=== PATIENT | female | born 1965 | race Caucasian/White ===

== ENCOUNTER 2019-05-26 17:11 | Emergency (ER) | payer MEDICARE, MEDICAID ==
[2019-05-26] MEDS ORDERED: Sodium Chloride 0.9% 10 ML Syringe FLUSH PRN (17:43)
--- NOTE | 2019-05-26 17:49 | EDM.PDOC ---
ED HPI GENERAL MEDICAL PROBLEM - General Chief Complaint: Headache Stated Complaint: GENERAL Time Seen by Provider: 05/26/19 17:33 Source of Information: Reports: Patient - History of Present Illness INITIAL COMMENTS - FREE TEXT/NARRATIVE: Emily is a 53 y/o female who presents to the ER with a headache that she reports started 5 days ago. She is very nauseated and the light bothers her eyes. She reports she has never had a headache this bad before. She was in to see her PCP today and apparently been given Prednisone, but she thinks that it is making her face a bit swollen. Her hands also feel "tingly" and swollen. Additionally patient reports a productive cough and she is a daily smoker, but has felt so sick today that she has been unable to smoke a full cigarette. She has not taken anything for the headache. Has been able to drink fluids today. Was prescribed Cephalexin today by her PCP today for respiratory sx, but did not pick it up. She starteed to take some Prednisone today that she had at home. Headache Pain Score (Numeric/FACES): 8 - Related Data Allergies Allergy/AdvReac Type Severity Reaction Status Date / Time butorphanol [From Stadol] Allergy Severe Anaphylactic Verified 05/26/19 17:26 Shock haloperidol [From Haldol] Allergy Severe Anaphylactic Verified 05/26/19 17:26 Shock midazolam [From Versed] Allergy Severe Anaphylactic Verified 05/26/19 17:26 Shock morphine Allergy Severe Anaphylactic Verified 05/26/19 17:26 Shock Sulfa (Sulfonamide Allergy Intermediate Hives Verified 05/26/19 17:26 Antibiotics) carbamazepine [From Tegretol] Allergy Other Verified 05/26/19 17:26 fentanyl Allergy Other Verified 05/26/19 17:27 Tetracyclines Allergy Other Verified 05/26/19 17:27 Home Meds: Home Meds Adalimumab [Humira Pediatric Crohn's] 40 mg SQ Q7D 12/21/17 [History] Albuterol [Ventolin HFA] 2 puff INH Q4H PRN 12/21/17 [History] Aspirin 81 mg PO DAILY 12/21/17 [History] Azelastine/Fluticasone [Dymista Nasal [place]] 1 spray LIAN BID 12/21/17 [History] Cetirizine [ZyrTEC] 10 mg PO DAILY 12/21/17 [History] ClonazePAM [KlonoPIN] 2 mg PO BID 12/21/17 [History] Dicyclomine [Bentyl] 40 mg PO BID 12/21/17 [History] Diphenoxylate HCl/Atropine [Diphenoxylate-Atrop 2.5-0.025] 2 tab PO QID PRN 09/04 [History] Docusate Sodium [Colace] 200 mg PO DAILY 12/21/17 [History] Fluticasone Propionate [Flonase] 2 spray NASBOTH BID 12/21/17 [History] Furosemide 80 mg PO BID 12/21/17 [History] Gabapentin [Neurontin] 800 mg PO BID 12/21/17 [History] Melatonin 10 mg PO BEDTIME 12/21/17 [History] Mesalamine 1,500 mg PO DAILY 12/21/17 [History] Metoprolol Succinate [Toprol XL 50mg] 50 mg PO DAILY 12/21/17 [History] Montelukast [Singulair] 10 mg PO DAILY 12/21/17 [History] Nitroglycerin [Nitrostat] 0.4 mg SL ASDIRECTED PRN 12/21/17 [History] OLANZapine [Olanzapine] 5 mg PO TID 12/21/17 [History] Ondansetron [Ondansetron ODT] 16 mg PO ASDIRECTED PRN 12/21/17 [History] Pantoprazole Sodium [Protonix] 40 mg PO BID 12/21/17 [History] Phenytoin Sodium Extended [Dilantin] 300 mg PO BEDTIME 12/21/17 [History] Pimecrolimus [Elidel] 1 applic TOP BID 12/21/17 [History] Potassium Chloride [Klor-Con M20] 20 meq PO BID 12/21/17 [History] QUEtiapine Fumarate [Quetiapine Fumarate] 150 mg PO DAILY 12/21/17 [History] QUEtiapine Fumarate [Quetiapine Fumarate] 800 mg PO BEDTIME 12/21/17 [History] Ranitidine [Zantac] 150 mg PO BID 12/21/17 [History] Rosuvastatin Calcium 40 mg PO DAILY 12/21/17 [History] Spironolactone [Aldactone] 25 mg PO DAILY 12/21/17 [History] Sucralfate [Carafate] 1 gm PO BID 12/21/17 [History] chlorproMAZINE HCl [Chlorpromazine HCl] 200 mg PO BEDTIME 12/21/17 [History] hydrOXYzine HCL [hydrOXYzine] 50 mg PO TID PRN 12/21/17 [History] lamoTRIgine 200 mg PO BID 12/21/17 [History] Fluticasone/Vilanterol [Breo Ellipta 200-25 MCG Inhalation Kit] 1 each IH ONETIME 05/26/19 [History] Past Medical History Cardiovascular History: Reports: CAD, High Cholesterol Respiratory History: Reports: Bronchitis, Recurrent Gastrointestinal History: Reports: GERD Neurological History: Reports: Seizure Psychiatric History: Reports: Bipolar, PTSD - Past Surgical History GI Surgical History: Reports: Appendectomy, Cholecystectomy, Hernia, Abdominal Musculoskeletal Surgical History: Reports: Shoulder Surgery Social & Family History - Tobacco Use Smoking Status *Q: Current Every Day Smoker Tobacco Use Within Last Twelve Months: Cigarettes Packs/Tins Daily: 0.5 Review of Systems - Review of Systems Review Of Systems: See Below Eyes: Reports: Photophobia Nose: Reports: Congestion, Clear Discharge Mouth/Throat: Reports: No Symptoms Respiratory: Reports: Cough Cardiovascular: Reports: No Symptoms GI/Abdominal: Reports: Diarrhea, Nausea Genitourinary: Reports: No Symptoms Musculoskeletal: Reports: No Symptoms Skin: Reports: No Symptoms Neurological: Reports: Headache, Tingling (hands) Psychiatric: Reports: No Symptoms ED EXAM, GENERAL - Physical Exam Exam: See Below General Appearance: Alert, WD/WN, No Apparent Distress Ears: Normal External Exam, Hearing Grossly Normal Ear Exam: Bilateral Ear: TM Dull, Other (air fluid levels noted) Nose: Normal Inspection, No Blood Throat/Mouth: Normal Lips, Normal Gums, Normal Oropharynx, Normal Voice, Other ( edentulous) Head: Atraumatic, Normocephalic Neck: Normal Inspection, Supple, Non-Tender Respiratory/Chest: No Respiratory Distress, No Accessory Muscle Use, Rales ( posterior RLL, occasional dry cough oted) Cardiovascular: Normal Peripheral Pulses, Regular Rate, Rhythm, No Edema, No Murmur GI/Abdominal: Normal Bowel Sounds, Soft, Non-Tender, No Distention (Female) Exam: Deferred Rectal (Female) Exam: Deferred Back Exam: Normal Inspection Extremities: Normal Inspection, No Pedal Edema, Normal Capillary Refill Neurological: Alert, Oriented, CN II-XII Intact, Normal Cognition, Normal Gait, No Motor/Sensory Deficits Psychiatric: Normal Affect, Normal Mood Skin Exam: Warm, Dry, Intact, Normal Color, No Rash Lymphatic: No Adenopathy Course - Vital Signs Text/Narrative:: 1732 The patient was seen by the [facility]. Labs, CXR, and Head CT were ordered. CT ordered since patient reported worse R[place] ever. 1 liter of NS, Toradol 30 mg IVP, Reglan 20 mg IVP, and Diphenhydramine 50 mg IVP ordered for headache sx. Additional diagnostics ordered to rule out Pneumonia, Influenza, UTI , Brain Tumor. 1854 Reports little relief of headache, rates pain 7.5/10. Phenergan 12.5mg IVP and Dilaudid 1mg IVP ordered. Remaining labs pending yet. 1939 Patient reports pain better now and she feels well enough to go home. Discharge instructions given and patient was sent home by nurse in stable condition. Last Recorded V/S: Last Vital Signs Temp 36.0 C 05/26/19 17:15 Pulse 70 05/26/19 17:15 Resp 18 05/26/19 17:15 BP 112/64 05/26/19 17:15 Pulse Ox 95 05/26/19 17:15 - Orders/Labs/Meds Orders: Active Orders 24 hr Category Date Time Status Sodium Chloride 0.9% [Saline Flush] Med 05/26/19 17:43 Active 10 ml FLUSH ASDIRECTED PRN Saline Lock Insert [OM.PC] Stat Oth 05/26/19 17:42 Ordered Medication Orders Sodium Chloride (Saline Flush) 10 ml FLUSH ASDIRECTED PRN PRN Reason: Keep Vein Open Labs: Laboratory Tests 05/26/19 05/26/19 05/26/19 Range/Units 17:55 17:55 19:04 WBC 4.2 (4.0-10.0) x10^3/uL RBC 4.38 (4.00-5.50) x10^6/uL Hgb 12.8 (12.0-16.0) g/dL Hct 39.9 (33.0-47.0) % MCV 91.1 (78.0-93.0) fL MCH 29.2 (26.0-32.0) pg MCHC 32.1 (32.0-36.0) g/dL RDW Coeff of Petr 16.3 H (10.0-15.0) % Plt Count 209 (130-400) x10^3/uL Neut % (Auto) 78.2 (50.0-80.0) % Lymph % (Auto) 16.4 L (25.0-50.0) % [place] % (Auto) 5.2 (2.0-11.0) % Eos % (Auto) 0.2 (0.0-4.0) % Baso % (Auto) 0.0 L (0.2-1.2) % Sodium 139 (136-145) mmol/L Potassium 3.6 (3.5-5.1) mmol/L Chloride 103 (98-107) mmol/L Carbon Dioxide 22 (21-32) mmol/L Anion Gap 17.6 (10-20) mmol/L BUN 10 (7-18) mg/dL Creatinine 1.4 H (0.55-1.02) mg/dL Est Cr Clr Drug Dosing TNP Estimated GFR (MDRD) 39 Glucose 320 H (74-106) mg/dL Calcium 7.9 L (8.5-10.1) mg/dL Corrected Calcium 8.94 (8.5-10.1) mg/dL Total Bilirubin 0.2 (0.2-1.0) mg/dL AST 29 (15-37) U/L ALT 56 (14-59) U/L Alkaline Phosphatase 274 H (46-116) U/L Total Protein 6.2 L (6.4-8.2) g/dL Albumin 2.7 L (3.4-5.0) g/dL Globulin 3.5 Albumin/Globulin Ratio 0.77 Urine Color Light yellow (YELLOW) Urine Appearance Clear (CLEAR) Urine pH 7.0 (5.0-8.0) Ur Specific [place] 1.010 Urine Protein Negative (NEGATIVE) mg/dL Urine Glucose (UA) 100 H (NEGATIVE) mg/dL Urine Ketones Negative (NEGATIVE) mg/dL Urine Occult Blood Trace-intact H (NEGATIVE) Urine Nitrite Negative (NEGATIVE) Urine Bilirubin Negative (NEGATIVE) Urine Urobilinogen 0.2 (0.2) EU/dL Ur Leukocyte Esterase Negative (NEGATIVE) Urine RBC 0-5 (NOT SEEN) /HPF Urine WBC 0-5 (NOT SEEN) /HPF Ur Squamous Epith Cells Few H (NEGATIVE) /HPF Urine Bacteria Not seen (NEGATIVE) /HPF Urine Mucus Not seen (NEGATIVE) /LPF Urine Opiates Screen (NEGATIVE) Ur Buprenorphine Scrn (NEGATIVE) Ur Oxycodone Screen (NEGATIVE) Ur EDDP (Meth Metab) (NEGATIVE) Urine Methadone Screen (NEGATIVE) Ur Barbituates Screen (NEGATIVE) Ur Tricyclics Screen (NEGATIVE) Ur Phencyclidine Scrn (NEGATIVE) Ur Amphetamines Screen (NEGATIVE) U Methamphetamines Scrn (NEGATIVE) Urine MDMA Screen (NEGATIVE) U Benzodiazepines Scrn (NEGATIVE) Urine Cocaine Screen (NEGATIVE) U Marijuana (THC) Screen (NEGATIVE) 05/26/19 Range/Units 19:04 WBC (4.0-10.0) x10^3/uL RBC (4.00-5.50) x10^6/uL Hgb (12.0-16.0) g/dL Hct (33.0-47.0) % MCV (78.0-93.0) fL MCH (26.0-32.0) pg MCHC (32.0-36.0) g/dL RDW Coeff of Petr (10.0-15.0) % Plt Count (130-400) x10^3/uL Neut % (Auto) (50.0-80.0) % Lymph % (Auto) (25.0-50.0) % [place] % (Auto) (2.0-11.0) % Eos % (Auto) (0.0-4.0) % Baso % (Auto) (0.2-1.2) % Sodium (136-145) mmol/L Potassium (3.5-5.1) mmol/L Chloride (98-107) mmol/L Carbon Dioxide (21-32) mmol/L Anion Gap (10-20) mmol/L BUN (7-18) mg/dL Creatinine (0.55-1.02) mg/dL Est Cr Clr Drug Dosing Estimated GFR (MDRD) Glucose (74-106) mg/dL Calcium (8.5-10.1) mg/dL Corrected Calcium (8.5-10.1) mg/dL Total Bilirubin (0.2-1.0) mg/dL AST (15-37) U/L ALT (14-59) U/L Alkaline Phosphatase (46-116) U/L Total Protein (6.4-8.2) g/dL Albumin (3.4-5.0) g/dL Globulin Albumin/Globulin Ratio Urine Color (YELLOW) Urine Appearance (CLEAR) Urine pH (5.0-8.0) Ur Specific [place] Urine Protein (NEGATIVE) mg/dL Urine Glucose (UA) (NEGATIVE) mg/dL Urine Ketones (NEGATIVE) mg/dL Urine Occult Blood (NEGATIVE) Urine Nitrite (NEGATIVE) Urine Bilirubin (NEGATIVE) Urine Urobilinogen (0.2) EU/dL Ur Leukocyte Esterase (NEGATIVE) Urine RBC (NOT SEEN) /HPF Urine WBC (NOT SEEN) /HPF Ur Squamous Epith Cells (NEGATIVE) /HPF Urine Bacteria (NEGATIVE) /HPF Urine Mucus (NEGATIVE) /LPF Urine Opiates Screen Negative (NEGATIVE) Ur Buprenorphine Scrn Negative (NEGATIVE) Ur Oxycodone Screen Negative (NEGATIVE) Ur EDDP (Meth Metab) Negative (NEGATIVE) Urine Methadone Screen Negative (NEGATIVE) Ur Barbituates Screen Positive H (NEGATIVE) Ur Tricyclics Screen Negative (NEGATIVE) Ur Phencyclidine Scrn Negative (NEGATIVE) Ur Amphetamines Screen Negative (NEGATIVE) U Methamphetamines Scrn Negative (NEGATIVE) Urine MDMA Screen Negative (NEGATIVE) U Benzodiazepines Scrn Negative (NEGATIVE) Urine Cocaine Screen Negative (NEGATIVE) U Marijuana (THC) Screen Negative (NEGATIVE) Meds: Medications Generic Name Dose Route Start Last Admin Trade Name Freq PRN Reason Stop Dose Admin Sodium Chloride 10 ml 05/26/19 17:43 Saline Flush FLUSH ASDIRECTED PRN Keep Vein Open Discontinued Medications Generic Name Dose Route Start Last Admin Trade Name Freq PRN Reason Stop Dose Admin Diphenhydramine HCl 50 mg 05/26/19 17:43 05/26/19 17:57 Benadryl IVPUSH 05/26/19 17:44 50 mg ONETIME ONE Administration Hydromorphone HCl 1 mg 05/26/19 18:58 05/26/19 19:23 Dilaudid IVPUSH 05/26/19 18:59 1 mg ONETIME ONE Administration Hydromorphone HCl 1 mg 05/26/19 19:20 05/26/19 19:43 Dilaudid IVPUSH 05/26/19 19:21 Not Given ONETIME ONE Sodium Chloride 1,000 mls @ 999 mls/hr 05/26/19 17:43 05/26/19 17:59 Normal Saline IV 05/26/19 18:43 999 mls/hr ONETIME ONE Administration Promethazine HCl 12.5 mg/ 100.5 mls @ 400 mls/hr 05/26/19 18:59 05/26/19 19: 18 Sodium Chloride IV 05/26/19 19:14 400 mls/hr ONETIME ONE Administration Ketorolac Tromethamine 30 mg 05/26/19 17:43 05/26/19 17:58 Toradol IVPUSH 05/26/19 17:44 30 mg ONETIME ONE Administration Metoclopramide HCl 20 mg 05/26/19 17:43 05/26/19 17:56 Reglan IVPUSH 05/26/19 17:44 20 mg ONETIME ONE Administration - Radiology Interpretation Free Text/Narrative:: CT Head WO=neg CXR=neg Departure - Departure Time of Disposition: 19:45 Disposition: Home, Self-Care 01 Condition: Good Clinical Impression: Migraine, URI (upper respiratory infection) - Discharge Information *PRESCRIPTION DRUG MONITORING PROGRAM REVIEWED*: No *COPY OF PRESCRIPTION DRUG MONITORING REPORT IN PATIENT SOHAIL: No Instructions: Viral Respiratory Infection, [id number], Migraine Headache Referrals: Ginny Khalil MD [Primary Care Provider] - Forms: ED Department Discharge Additional Instructions: -Resume your home meds -Take the prescriptions as prescribed by your PCP -Rest -Stay well hydrated -Return to the ER if symptoms return or you have any other concerns Sepsis Event Note - Evaluation Sepsis Screening Result: No Definite Risk - Focused Exam Vital Signs: Vital Signs Temp Pulse Resp BP Pulse Ox 05/26/19 17:15 36.0 C 70 18 112/64 95 Date Exam was Performed: 05/26/19 Time Exam was Performed: 19:44 - My Orders Last 24 Hours: My Active Orders 05/26/19 17:42 Saline Lock Insert [OM.PC] Stat 05/26/19 17:43 Sodium Chloride 0.9% [Saline Flush] 10 ml FLUSH ASDIRECTED PRN - Assessment/Plan Last 24 Hours: My Active Orders 05/26/19 17:42 Saline Lock Insert [OM.PC] Stat 05/26/19 17:43 Sodium Chloride 0.9% [Saline Flush] 10 ml FLUSH ASDIRECTED PRN
[2019-05-26] MEDS: Metoclopramide 10 MG/2 ML SDV IVPUSH ONE (17:56)
[2019-05-26] MEDS: diphenhydrAMINE 50 MG/ML SDV IVPUSH ONE (17:57)
[2019-05-26] MEDS: Ketorolac 30 MG/ML SDV IVPUSH ONE (17:58)
[2019-05-26] MEDS: Sodium Chloride 0.9% 1,000 ML IV ONE (17:59)
[2019-05-26 18:21] LABS: CHLORIDE,CL 103 mmol/L (98-107); SODIUM,NA 139 mmol/L (136-145)
[2019-05-26 18:25] LABS: ANION GAP 17.6 mmol/L (10-20)
--- NOTE | 2019-05-26 18:36 | CR ---
[id number] RAD/RAD Chest PA And Lateral EXAM: FRONTAL AND LATERAL CHEST INDICATION: Cough and right lower lobe rales. Smoking history. COMPARISON: None. DISCUSSION: Mild linear subsegmental atelectasis or scarring in both lung bases. No definite infiltrates. Normal heart size. Borderline hyperinflation. IMPRESSION: 1. Mild linear scarring or subsegmental atelectasis in both lung bases. No definite infiltrates. Rogelio Lee MD 05/26/19 [id number] Thank you for allowing us to participate in the care of your patient.
--- NOTE | 2019-05-26 18:38 | CT ---
[id number] CT/CT Head WO IV EXAM: NONCONTRAST HEAD CT INDICATION: Worst headache ever had for 5 days. COMPARISON: December 21, 2017. DISCUSSION: The ventricles and sulci are normal in size and configuration. The leblanc and white matter are normal in attenuation. No mass effect or midline shift. No acute hemorrhage or extra-axial fluid collection. No acute territorial infarct is identified. A limited look at the orbits and paranasal sinuses is unremarkable. IMPRESSION: 1. Negative exam. Rogelio Lee MD 05/26/19 [id number] Thank you for allowing us to participate in the care of your patient.
[2019-05-26 19:18] LABS: BUPRENORPHINE,URINE NEGATIVE (NEGATIVE); MARIJUANA,URINE NEGATIVE (NEGATIVE); METHYLENEDIOXYMETHAMP,UR NEGATIVE (NEGATIVE); PHENCYCLIDINE,URINE NEGATIVE (NEGATIVE)
[2019-05-26] MEDS: Promethazine 12.5 MG in Sodium Chloride 0.9% 100 ML IV ONE (19:18)
[2019-05-26] MEDS: HYDROmorphone 1 MG/ML Syringe IVPUSH ONE ×2 (19:23→19:43)
== END 2019-05-26 19:52 | disposition home or self-care (01) ==
LOC: VM.ED 17:11
DX: G43.909 Migraine, unspecified, not intractable, without status migrainosus (principal); J06.9 Acute upper respiratory infection, unspecified; F17.210 Nicotine dependence, cigarettes, uncomplicated; Z79.899 Other long term (current) drug therapy; Z79.82 Long term (current) use of aspirin; Z88.2 Allergy status to sulfonamides; Z88.5 Allergy status to narcotic agent; Z88.8 Allergy status to other drugs, medicaments and biological substances
CPT/HCPCS: 36415; 70450; 71046; 80053; 80305; 81001; 85025; 87804; 96361; 96374; 96375; 99283; 99284; J1170; J1200; J1885; J2550; J2765; J7030; J7050

== ENCOUNTER 2019-07-22 21:36 | Emergency (ER) | payer MEDICARE, MEDICAID ==
[2019-07-22] MEDS ORDERED: Sodium Chloride 0.9% 10 ML Syringe FLUSH PRN (21:44)
[2019-07-22] MEDS ORDERED: Aspirin 81 MG Tab.Chew PO ONE (21:45)
[2019-07-22] MEDS ORDERED: Nitroglycerin 0.4 MG Tab.SL SL ONE (21:45)
--- NOTE | 2019-07-22 22:20 | EDM.PDOC ---
ED HPI GENERAL MEDICAL PROBLEM - General Stated Complaint: CHEST PAIN Time Seen by Provider: 07/22/19 21:36 Source of Information: Reports: Patient History Limitations: Reports: No Limitations - History of Present Illness INITIAL COMMENTS - FREE TEXT/NARRATIVE: Pt. presents to ER with complaints of severe substernal chest pressure with radiation into upper back and down R arm. She states that she has been diaphoretic. Pt. states that this started at around 0 tonight. She was relaxing watching TV at the time. She states that she has been experiencing intermittent chest discomfort for months. She states that she has been fatigued for some time. Pt. states that she moved her from [place] last year. She states that she has a history of CAD. She states that she has "30% blockage" in one of her coronaries , but is not sure which one. She states that she had "heart attacks" in 2001 and 2007. She states that she has had 2 angiograms but has not stents, has never had a CABG. Pt. states that she is a smoker. She has JOSE D. She has a history of chronic diastolic heart failure. Echo in 2019 showed normal LV function, EF of 65%, normal RV systolic function. Other comorbidities include obesity and IFG. She also has a history of Chrohn's disease, GERD,bipolar 1 disorder, and PTSD. Onset: Today Onset Date: 07/22/19 Onset Time: 20:50 Location: Reports: Chest, Back, Upper Extremity, Right Quality: Reports: Ache, Burning, Pressure Severity: Moderate Mid sternal chest pain Pain Score (Numeric/FACES): 7 - Related Data Allergies Allergy/AdvReac Type Severity Reaction Status Date / Time butorphanol [From Stadol] Allergy Severe Anaphylactic Verified 07/22/19 22:40 Shock haloperidol [From Haldol] Allergy Severe Anaphylactic Verified 07/22/19 22:40 Shock midazolam [From Versed] Allergy Severe Anaphylactic Verified 07/22/19 22:40 Shock morphine Allergy Severe Anaphylactic Verified 07/22/19 22:40 Shock Sulfa (Sulfonamide Allergy Intermediate Hives Verified 07/22/19 22:40 Antibiotics) carbamazepine [From Tegretol] Allergy Other Verified 07/22/19 22:40 fentanyl Allergy Other Verified 07/22/19 22:40 Tetracyclines Allergy Other Verified 07/22/19 22:40 Home Meds: Home Meds Adalimumab [Humira Pediatric Crohn's] 40 mg SQ Q7D 12/21/17 [History] Albuterol [Ventolin HFA] 2 puff INH Q4H PRN 12/21/17 [History] Aspirin 81 mg PO DAILY 12/21/17 [History] Azelastine/Fluticasone [Dymista Nasal [place]] 1 spray LIAN BID 12/21/17 [History] Cetirizine [ZyrTEC] 10 mg PO DAILY 12/21/17 [History] ClonazePAM [KlonoPIN] 2 mg PO BID 12/21/17 [History] Dicyclomine [Bentyl] 40 mg PO BID 12/21/17 [History] Diphenoxylate HCl/Atropine [Diphenoxylate-Atrop 2.5-0.025] 2 tab PO QID PRN 09/04 [History] Fluticasone Propionate [Flonase] 2 spray NASBOTH BID 12/21/17 [History] Furosemide 80 mg PO BID 12/21/17 [History] Gabapentin [Neurontin] 800 mg PO BID 12/21/17 [History] Melatonin 10 mg PO BEDTIME 12/21/17 [History] Mesalamine 1,500 mg PO DAILY 12/21/17 [History] Metoprolol Succinate [Toprol XL 50mg] 50 mg PO DAILY 12/21/17 [History] Montelukast [Singulair] 10 mg PO DAILY 12/21/17 [History] Nitroglycerin [Nitrostat] 0.4 mg SL ASDIRECTED PRN 12/21/17 [History] Ondansetron [Ondansetron ODT] 16 mg PO ASDIRECTED PRN 12/21/17 [History] Pantoprazole Sodium [Protonix] 40 mg PO BID 12/21/17 [History] Phenytoin Sodium Extended [Dilantin] 300 mg PO BEDTIME 12/21/17 [History] Pimecrolimus [Elidel] 1 applic TOP BID 12/21/17 [History] Potassium Chloride [Klor-Con M20] 20 meq PO BID 12/21/17 [History] QUEtiapine Fumarate [Quetiapine Fumarate] 150 mg PO DAILY 12/21/17 [History] QUEtiapine Fumarate [Quetiapine Fumarate] 800 mg PO BEDTIME 12/21/17 [History] Ranitidine [Zantac] 150 mg PO BID 12/21/17 [History] Rosuvastatin Calcium 40 mg PO DAILY 12/21/17 [History] Spironolactone [Aldactone] 25 mg PO DAILY 12/21/17 [History] Sucralfate [Carafate] 1 gm PO BID 12/21/17 [History] chlorproMAZINE HCl [Chlorpromazine HCl] 200 mg PO BEDTIME 12/21/17 [History] hydrOXYzine HCL [hydrOXYzine] 50 mg PO TID PRN 12/21/17 [History] lamoTRIgine 200 mg PO BID 12/21/17 [History] Fluticasone/Vilanterol [Breo Ellipta 200-25 MCG Inhalation Kit] 1 each IH ONETIME 05/26/19 [History] Past Medical History Cardiovascular History: Reports: CAD, High Cholesterol Respiratory History: Reports: Bronchitis, Recurrent Gastrointestinal History: Reports: GERD Neurological History: Reports: Seizure Psychiatric History: Reports: Bipolar, PTSD - Past Surgical History GI Surgical History: Reports: Appendectomy, Cholecystectomy, Hernia, Abdominal Musculoskeletal Surgical History: Reports: Shoulder Surgery ED ROS GENERAL - Review of Systems Review Of Systems: See Below Constitutional: Reports: No Symptoms, Fatigue, Diaphoresis HEENT: Reports: No Symptoms Respiratory: Reports: Shortness of Breath Cardiovascular: Reports: Chest Pain Endocrine: Reports: No Symptoms GI/Abdominal: Reports: No Symptoms : Reports: No Symptoms Musculoskeletal: Reports: No Symptoms Skin: Reports: No Symptoms Neurological: Reports: No Symptoms Psychiatric: Reports: Anxiety Hematologic/Lymphatic: Reports: No Symptoms Immunologic: Reports: No Symptoms ED EXAM, GENERAL - Physical Exam Exam: See Below Exam Limited By: No Limitations General Appearance: Alert, WD/WN, No Apparent Distress Head: Atraumatic, Normocephalic Neck: Normal Inspection, Supple, Non-Tender, Full Range of Motion Respiratory/Chest: No Respiratory Distress, Lungs Clear, Normal Breath Sounds, No Accessory Muscle Use, Chest Non-Tender Cardiovascular: Normal Peripheral Pulses, Regular Rate, Rhythm, No Edema, No Murmur Peripheral Pulses: 4+: Radial (L), Radial (R), Posterior Tibial (R) GI/Abdominal: Soft, Non-Tender, No Organomegaly, No Distention, No Mass (Female) Exam: Deferred Rectal (Female) Exam: Deferred Back Exam: Normal Inspection, Full Range of Motion Extremities: Normal Inspection, Normal Range of Motion, Non-Tender, No Pedal Edema, Normal Capillary Refill Neurological: Alert, Oriented, CN II-XII Intact, Normal Cognition, Normal Gait, Normal Reflexes, No Motor/Sensory Deficits Psychiatric: Normal Affect, Normal Mood Skin Exam: Warm, Dry, Intact, Normal Color, No Rash Lymphatic: No Adenopathy EKG INTERPRETATION Rhythm: NSR [place]: Normal P-Wave: Present QRS: Normal ST-T: Depressed (in lateral leads) QT: Normal Course - Vital Signs Last Recorded V/S: Last Vital Signs Temp 35.8 C L 07/22/19 21:36 Pulse 95 07/22/19 21:36 Resp 12 07/22/19 21:36 BP 129/74 07/22/19 22:08 Pulse Ox 96 07/22/19 21:36 - Orders/Labs/Meds Orders: Active Orders 24 hr Category Date Time Status EKG Documentation Completion [RC] STAT Care 07/22/19 21:44 Active Chest 1V Frontal [CR] Stat Exams 07/22/19 21:49 Taken Heparin Sodium/0.45% NaCl [Heparin 25,000 Units in 1/2 Med 07/22/19 23:04 Ordered NS 500 ML] 25,000 units in 500 ml IV ONETIME Nitroglycerin 25 MG in D5W @ 10 MCG/MIN (250ml) Premix Med 07/22/19 23:15 Ordered Nitroglycerin/D5W [Nitroglycerin 25 MG/D5W 250 ML] 25 mg in 250 ml IV TITRATE Sodium Chloride 0.9% [Saline Flush] Med 07/22/19 21:44 Active 10 ml FLUSH ASDIRECTED PRN Peripheral IV Insertion Adult [OM.PC] Routine Oth 07/22/19 21:45 Ordered Medication Orders Heparin Sodium/Sodium Chloride (Heparin 25,000 Units In 1/2 Ns 500 Ml) 25,000 units in 500 mls @ 20 mls/hr IV ONETIME ONE; Protocol Stop: 07/24/19 00:03 Nitroglycerin/Dextrose (Nitroglycerin 25 Mg/D5w 250 Ml) 25 mg in 250 mls @ 6 mls/hr IV TITRATE FERNANDO; Protocol Sodium Chloride (Saline Flush) 10 ml FLUSH ASDIRECTED PRN PRN Reason: Keep Vein Open Labs: Laboratory Tests 07/22/19 07/22/19 07/22/19 Range/Units 22:15 22:15 22:15 WBC 11.7 H (4.0-10.0) x10^3/uL RBC 4.99 (4.00-5.50) x10^6/uL Hgb 14.6 D (12.0-16.0) g/dL Hct 43.1 (33.0-47.0) % MCV 86.4 D (78.0-93.0) fL MCH 29.3 (26.0-32.0) pg MCHC 33.9 (32.0-36.0) g/dL RDW Coeff of Petr 16.6 H (10.0-15.0) % Plt Count 394 D (130-400) x10^3/uL Neut % (Auto) 63.0 (50.0-80.0) % Lymph % (Auto) 23.4 L (25.0-50.0) % Schley % (Auto) 12.4 H (2.0-11.0) % Eos % (Auto) 0.9 (0.0-4.0) % Baso % (Auto) 0.3 (0.2-1.2) % PT 10.4 (10.0-12.8) SEC INR 0.9 L (2.0-3.5) Sodium 141 (136-145) mmol/L Potassium 2.8 L* (3.5-5.1) mmol/L Chloride 103 (98-107) mmol/L Carbon Dioxide 23 (21-32) mmol/L Anion Gap 17.8 (10-20) mmol/L BUN 5 L (7-18) mg/dL Creatinine 1.3 H (0.55-1.02) mg/dL Est Cr Clr Drug Dosing 46.31 mL/min Estimated GFR (MDRD) 43 Glucose 121 H (74-106) mg/dL Calcium 8.8 (8.5-10.1) mg/dL Corrected Calcium 9.44 (8.5-10.1) mg/dL Phosphorus 3.0 (2.6-4.7) mg/dL Magnesium 1.6 L (1.8-2.4) mg/dL Total Bilirubin 0.2 (0.2-1.0) mg/dL AST 61 H (15-37) U/L ALT 64 H (14-59) U/L Alkaline Phosphatase 343 H (46-116) U/L Troponin I < 0.017 (<=0.056) ng/mL Total Protein 7.2 (6.4-8.2) g/dL Albumin 3.2 L (3.4-5.0) g/dL Globulin 4.0 Albumin/Globulin Ratio 0.80 TSH, Ultra Sensitive 1.781 (0.358-3.74) uIU/mL Meds: Medications Generic Name Dose Route Start Last Admin Trade Name Freq PRN Reason Stop Dose Admin Heparin Sodium/Sodium Chloride 25,000 units in 500 mls @ 20 mls/hr 07/22/19 23 :04 Heparin 25,000 Units In 1/2 Ns 500 Ml IV 07/24/19 00:03 ONETIME ONE Protocol 1,000 UNITS/HR Nitroglycerin/Dextrose 25 mg in 250 mls @ 6 mls/hr 07/22/19 23:15 Nitroglycerin 25 Mg/D5w 250 Ml IV TITRATE FERNANDO Protocol 10 MCG/MIN Sodium Chloride 10 ml 07/22/19 21:44 Saline Flush FLUSH ASDIRECTED PRN Keep Vein Open Discontinued Medications Generic Name Dose Route Start Last Admin Trade Name Freq PRN Reason Stop Dose Admin Aspirin 324 mg 07/22/19 21:45 07/22/19 21:49 Aspirin PO 07/22/19 21:46 324 mg ONETIME ONE Administration Heparin Sodium (Porcine) 4,000 units 07/22/19 23:03 Heparin Sodium IVPUSH 07/22/19 23:04 .BOLUS ONE Hydromorphone HCl 1 mg 07/22/19 22:21 07/22/19 22:28 Dilaudid IVPUSH 07/22/19 22:22 1 mg ONETIME ONE Administration Nitroglycerin 0.4 mg 07/22/19 21:45 07/22/19 22:08 Nitrostat SL 07/22/19 21:46 0.4 mg ONETIME ONE Administration Departure - Departure Time of Disposition: 23:14 Disposition: DC/Tfer to [facility] Clinical Impression: Unstable angina - Discharge Information Referrals: Ginny Khalil MD [Primary Care Provider] - Forms: ED Department Discharge, Interfacility Transfer EMTALA Sepsis Event Note - Focused Exam Vital Signs: Vital Signs Temp Pulse Resp BP BP Pulse Ox 07/22/19 22:08 129/74 07/22/19 21:36 35.8 C L 95 12 129/74 96 Date Exam was Performed: 07/22/19 Time Exam was Performed: 23:14 - Problem List Review Problem List Initiated/Reviewed/Updated: Yes - My Orders Last 24 Hours: My Active Orders 07/22/19 21:44 EKG Documentation Completion [RC] STAT Sodium Chloride 0.9% [Saline Flush] 10 ml FLUSH ASDIRECTED PRN 07/22/19 21:45 Peripheral IV Insertion Adult [OM.PC] Routine 07/22/19 21:49 Chest 1V Frontal [CR] Stat 07/22/19 23:04 Heparin Sodium/0.45% NaCl [Heparin 25,000 Units in 1/2 NS 500 ML] 25,000 units in 500 ml IV ONETIME 07/22/19 23:15 Nitroglycerin 25 MG in D5W @ 10 MCG/MIN (250ml) Premix Nitroglycerin/D5W [ Nitroglycerin 25 MG/D5W 250 ML] 25 mg in 250 ml IV TITRATE - Assessment/Plan Last 24 Hours: My Active Orders 07/22/19 21:44 EKG Documentation Completion [RC] STAT Sodium Chloride 0.9% [Saline Flush] 10 ml FLUSH ASDIRECTED PRN 07/22/19 21:45 Peripheral IV Insertion Adult [OM.PC] Routine 07/22/19 21:49 Chest 1V Frontal [CR] Stat 07/22/19 23:04 Heparin Sodium/0.45% NaCl [Heparin 25,000 Units in 1/2 NS 500 ML] 25,000 units in 500 ml IV ONETIME 07/22/19 23:15 Nitroglycerin 25 MG in D5W @ 10 MCG/MIN (250ml) Premix Nitroglycerin/D5W [ Nitroglycerin 25 MG/D5W 250 ML] 25 mg in 250 ml IV TITRATE Plan: Pt. will be transferred to [facility] in [place]. Pt. was given potassium chloride 40meq in ER. Pt. was heparinized with 4000U heparin bolus and a 1000u/hr drip. Pt. was started on a nitro drip at 10ug/min. Dr. Bernal, hospitalist at [facility] in [place] accepts the patient in transfer. She will be transported via [facility] ground ambulance.
[2019-07-22] MEDS ORDERED: HYDROmorphone 1 MG/ML Syringe IVPUSH ONE (22:21)
[2019-07-22 22:53] LABS: CHLORIDE,CL 103 mmol/L (98-107); SODIUM,NA 141 mmol/L (136-145)
[2019-07-22 22:54] LABS: ANION GAP 17.8 mmol/L (10-20)
[2019-07-22] MEDS ORDERED: Heparin Sodium 5,000 Units/ML Vial IVPUSH ONE (23:03)
[2019-07-22] MEDS ORDERED: Heparin Sodium/0.45% NaCl 25,000 UNITS/500 ML BAG IV ONE (23:04)
[2019-07-22] MEDS ORDERED: Nitroglycerin/D5W 25 MG/250 ML BOTTLE IV SCH (23:15)
[2019-07-22] MEDS ORDERED: Nitroglycerin/D5W 25 MG/250 ML BOTTLE ONE (23:32)
[2019-07-22] MEDS ORDERED: Potassium Chloride 20 MEQ Tab.ER PO ONE (23:36)
--- NOTE | 2019-07-23 07:40 | CR ---
[id number] RAD/RAD Chest PA or AP 1V EXAM: FRONTAL CHEST INDICATION: CHEST PAIN COMPARISON: May 26, 2019. DISCUSSION: Mild bibasilar scarring with no acute infiltrates identified. The heart is within normal size limits when allowances are made for portable technique. IMPRESSION: 1. No acute findings. Rogelio Lee MD 07/23/19 0737 Thank you for allowing us to participate in the care of your patient.
== END 2019-07-23 00:15 | disposition short-term general hospital (02) ==
LOC: VM.ED 21:36
DX: I20.0 Unstable angina (principal); I50.9 Heart failure, unspecified; F31.9 Bipolar disorder, unspecified; M19.90 Unspecified osteoarthritis, unspecified site; K21.9 Gastro-esophageal reflux disease without esophagitis; Z90.49 Acquired absence of other specified parts of digestive tract; Z88.2 Allergy status to sulfonamides; Z88.5 Allergy status to narcotic agent; Z79.82 Long term (current) use of aspirin; Z79.899 Other long term (current) drug therapy
CPT/HCPCS: 36415; 71045; 80053; 83735; 84100; 84443; 84484; 85025; 85610; 93005; 93010; 96365; 96375; 99284; 99285; A9270; J1170; J1644; J3490

== ENCOUNTER 2021-03-01 20:52 | Emergency (ER) | payer MEDICARE, MEDICAID ==
[2021-03-01] MEDS ORDERED: Iopamidol 755 Mg/ML 100 ML Bottle IV ONE (21:10)
[2021-03-01] MEDS ORDERED: Morphine 4 MG/ML Syringe IVPUSH ONE (21:37)
--- NOTE | 2021-03-01 21:47 | EDM.PDOC ---
ED HPI GENERAL MEDICAL PROBLEM - General Time Seen by Provider: 03/01/21 20:52 Source of Information: Reports: Patient History Limitations: Reports: No Limitations - History of Present Illness INITIAL COMMENTS - FREE TEXT/NARRATIVE: Pt. presents to ER with complaints of chest pain, back pain, shortness of breath, and fatigue. Pt. states that she has had a total of 3 covid vaccinations, and states that she has felt poorly since the 3rd injection 01/17/2021. Pt. PCP is Dr. Malave. She states that today she overexerted herself carrying boxes up stairs that exacerbated the pain. Pt. states that the discomfort in her chest is worse with deep breathing, movement, and palpation. EMS was summoned. They reported that they found the patient to be hypotensive with a BP in the 80s systolic, and her O2 sat was in the mid 80s as well. Pt. has a history of COPD and smokes. Pt. also appears to have been doctoring for GERD/heartburn symptoms recently with Dr. Malave. Pt. has had problems with chest pain in the past. She was transferred to [place] from this facility previous with unstable angina, underwent angiogram in 07/2019 which did not show any obstructive disease. Troponins were trended at that time and remained negative. She complains of chronic cough. Denies congestion, fever, chills, nausea, vomiting, diarrhea, bloody stools. Onset: Today Onset Date: 03/01/21 Location: Reports: Chest, Generalized Severity: Moderate Chest Pain Score (Numeric/FACES): 8 - Related Data Allergies Allergy/AdvReac Type Severity Reaction Status Date / Time butorphanol [From Stadol] Allergy Severe Anaphylactic Verified 02/02/21 09:38 Shock haloperidol [From Haldol] Allergy Severe Anaphylactic Verified 02/02/21 09:38 Shock midazolam [From Versed] Allergy Severe Anaphylactic Verified 02/02/21 09:38 Shock morphine Allergy Severe Anaphylactic Verified 02/02/21 09:38 Shock Sulfa (Sulfonamide Allergy Intermediate Hives Verified 02/02/21 09:38 Antibiotics) carbamazepine [From Tegretol] Allergy Other Verified 02/02/21 09:38 fentanyl Allergy Other Verified 02/02/21 09:38 Tetracyclines Allergy Other Verified 02/02/21 09:38 Home Meds: Home Meds Adalimumab [Humira Pediatric Crohn's] 40 mg SQ Q7D 12/21/17 [History] Albuterol [Ventolin HFA] 2 puff INH Q4H PRN 12/21/17 [History] Aspirin 81 mg PO DAILY 12/21/17 [History] Azelastine/Fluticasone [Dymista Nasal [place]] 1 spray LIAN BID 12/21/17 [History] Cetirizine [ZyrTEC] 10 mg PO DAILY 12/21/17 [History] ClonazePAM [KlonoPIN] 2 mg PO BID 12/21/17 [History] Dicyclomine [Bentyl] 40 mg PO BID 12/21/17 [History] Diphenoxylate HCl/Atropine [Diphenoxylate-Atrop 2.5-0.025] 2 tab PO QID PRN 12/21/17 [History] Fluticasone Propionate [Flonase] 2 spray NASBOTH BID 12/21/17 [History] Furosemide 80 mg PO BID 12/21/17 [History] Gabapentin [Neurontin] 800 mg PO BID 12/21/17 [History] Melatonin 10 mg PO BEDTIME 12/21/17 [History] Mesalamine 1,500 mg PO DAILY 12/21/17 [History] Metoprolol Succinate [Toprol XL 50mg] 50 mg PO DAILY 12/21/17 [History] Montelukast [Singulair] 10 mg PO DAILY 12/21/17 [History] Nitroglycerin [Nitrostat] 0.4 mg SL ASDIRECTED PRN 12/21/17 [History] Ondansetron [Ondansetron ODT] 16 mg PO ASDIRECTED PRN 12/21/17 [History] Pantoprazole Sodium [Protonix] 40 mg PO BID 12/21/17 [History] Phenytoin Sodium Extended [Dilantin] 300 mg PO BEDTIME 12/21/17 [History] Pimecrolimus [Elidel] 1 applic TOP BID 12/21/17 [History] Potassium Chloride [Klor-Con M20] 20 meq PO BID 12/21/17 [History] QUEtiapine Fumarate [Quetiapine Fumarate] 150 mg PO DAILY 12/21/17 [History] QUEtiapine Fumarate [Quetiapine Fumarate] 800 mg PO BEDTIME 12/21/17 [History] Ranitidine [Zantac] 150 mg PO BID 12/21/17 [History] Rosuvastatin Calcium 40 mg PO DAILY 12/21/17 [History] Spironolactone [Aldactone] 25 mg PO DAILY 12/21/17 [History] Sucralfate [Carafate] 1 gm PO BID 12/21/17 [History] chlorproMAZINE HCl [Chlorpromazine HCl] 200 mg PO BEDTIME 12/21/17 [History] hydrOXYzine HCL [hydrOXYzine] 50 mg PO TID PRN 12/21/17 [History] lamoTRIgine 200 mg PO BID 12/21/17 [History] Fluticasone/Vilanterol [Breo Ellipta 200-25 MCG Inhalation Kit] 1 each IH ONETIME 05/26/19 [History] Clindamycin HCl 300 mg PO QID #40 capsule 02/09/21 [Rx] Past Medical History Cardiovascular History: Reports: CAD, High Cholesterol Respiratory History: Reports: Bronchitis, Recurrent Gastrointestinal History: Reports: GERD Neurological History: Reports: Seizure Psychiatric History: Reports: Bipolar, PTSD - Past Surgical History GI Surgical History: Reports: Appendectomy, Cholecystectomy, Hernia, Abdominal Musculoskeletal Surgical History: Reports: Shoulder Surgery ED ROS GENERAL - Review of Systems Review Of Systems: See Below Constitutional: Reports: No Symptoms HEENT: Reports: No Symptoms Respiratory: Reports: Shortness of Breath Cardiovascular: Reports: Chest Pain Endocrine: Reports: No Symptoms GI/Abdominal: Reports: No Symptoms : Reports: No Symptoms Musculoskeletal: Reports: No Symptoms Skin: Reports: No Symptoms Neurological: Reports: No Symptoms Psychiatric: Reports: No Symptoms Hematologic/Lymphatic: Reports: No Symptoms Immunologic: Reports: No Symptoms ED EXAM, GENERAL - Physical Exam Exam: See Below Exam Limited By: No Limitations General Appearance: Alert, WD/WN, Mild Distress Eye Exam: Bilateral Eye: EOMI, PERRL Head: Atraumatic, Normocephalic Neck: Normal Inspection, Supple, Non-Tender, Full Range of Motion Respiratory/Chest: Decreased Breath Sounds, Wheezing, Other (chest tender to palpation, movement. No rub noted.) Cardiovascular: Normal Peripheral Pulses, Regular Rate, Rhythm, No Edema, No JVD, No Murmur Peripheral Pulses: 4+: Radial (R) GI/Abdominal: Soft, Non-Tender, No Organomegaly, No Distention, No Mass (Female) Exam: Deferred Rectal (Female) Exam: Deferred Back Exam: Normal Inspection, Full Range of Motion Extremities: Normal Inspection, Normal Range of Motion, Non-Tender, No Pedal Edema, Normal Capillary Refill Neurological: Alert, Oriented, CN II-XII Intact, Normal Cognition, Normal Gait, Normal Reflexes, No Motor/Sensory Deficits Psychiatric: Normal Affect, Normal Mood Skin Exam: Warm, Dry, Intact, Normal Color, No Rash Lymphatic: No Adenopathy #1 Interpretation Rhythm: NSR [place]: Normal P-Wave: Present QRS: Normal ST-T: Normal QT: Normal Course - Vital Signs Last Recorded V/S: Last Vital Signs Temp 36.6 C 03/01/21 22:09 Pulse 110 H 03/01/21 22:09 Resp 17 03/01/21 22:09 BP 110/55 L 03/01/21 22:09 Pulse Ox 98 03/01/21 22:09 - Orders/Labs/Meds Orders: Active Orders 24 hr Category Date Time Status Chest PE [Ang Chest] [CT] Stat Exams 03/01/21 21:04 Taken CULTURE BLOOD [BC] Stat Lab 03/01/21 21:18 Received CULTURE BLOOD [BC] Stat Lab 03/01/21 21:24 Received NS + KCl 20mEq/L [Normal Saline with 20 mEq KCl] 1,000 Med 03/01/21 22:15 Active ml IV ASDIRECTED Blood Culture x2 Reflex Set [OM.PC] Stat Oth 03/01/21 21:05 Ordered Medication Orders Potassium Chloride/Sodium Chloride (Normal Saline With 20 Meq Kcl) 1,000 mls @ 500 mls/hr IV ASDIRECTED FERNANDO Labs: Laboratory Tests 03/01/21 03/01/21 03/01/21 Range/Units 21:18 21:18 21:18 WBC 8.7 (4.0-10.0) x10^3/uL RBC 4.64 (4.00-5.50) x10^6/uL Hgb 14.4 (12.0-16.0) g/dL Hct 42.7 (33.0-47.0) % MCV 92.0 (78.0-93.0) fL MCH 31.0 (26.0-32.0) pg MCHC 33.7 (32.0-36.0) g/dL RDW Coeff of Petr 14.2 (10.0-15.0) % Plt Count 325 (130-400) x10^3/uL Immature Gran % (Auto) 0.60 H (0.00-0.43) % Neut % (Auto) 65.7 (50.0-80.0) % Lymph % (Auto) 21.1 L (25.0-50.0) % [place] % (Auto) 10.9 (2.0-11.0) % Eos % (Auto) 1.4 (0.0-4.0) % Baso % (Auto) 0.3 (0.2-1.2) % Neut # (Auto) 5.7 (1.8-7.7) x10^3/uL Lymph # (Auto) 1.8 (1.0-4.8) x10^3/uL [place] # (Auto) 1.0 H (0.0-0.8) x10^3/uL Eos # (Auto) 0.1 (0.0-0.5) x10^3/uL Baso # (Auto) 0.0 (0.0-0.2) x10^3/uL Immature Gran # (Auto) 0.05 (0.00-0.07) x10^3/uL PT 10.9 (9.9-12.5) SEC INR 1.0 L (2.0-3.5) APTT (25.6-32.8) SEC D-Dimer, Quantitative 0.30 (<=0.58) mg/LFEU Sodium 142 (136-145) mmol/L Potassium 2.7 L* (3.5-5.1) mmol/L Chloride 104 (98-107) mmol/L Carbon Dioxide 24 (21-32) mmol/L Anion Gap 16.7 H (5-15) mmol/L BUN 7 (7-18) mg/dL Creatinine 1.4 H (0.55-1.02) mg/dL Est Cr Clr Drug Dosing TNP Estimated GFR (MDRD) 39 Glucose 146 H (70-99) mg/dL Lactic Acid (0.4-2.0) mmol/L Calcium 8.1 L (8.5-10.1) mg/dL Corrected Calcium 9.0 (8.5-10.1) mg/dL Phosphorus 3.3 (2.6-4.7) mg/dL Magnesium 1.7 L (1.8-2.4) mg/dL Total Bilirubin 0.3 (0.2-1.0) mg/dL AST 30 (15-37) U/L ALT 47 (14-59) U/L Alkaline Phosphatase 330 H (46-116) U/L Troponin I High Sens 6 (<=51) ng/L C-Reactive Protein 3.8 H (<=0.9) mg/dL NT-Pro-B Natriuret Pep 205 H (<=125) pg/mL Total Protein 6.6 (6.4-8.2) g/dL Albumin 2.9 L (3.4-5.0) g/dL Globulin 3.7 Albumin/Globulin Ratio 0.78 03/01/21 03/01/21 Range/Units 21:18 21:18 WBC (4.0-10.0) x10^3/uL RBC (4.00-5.50) x10^6/uL Hgb (12.0-16.0) g/dL Hct (33.0-47.0) % MCV (78.0-93.0) fL MCH (26.0-32.0) pg MCHC (32.0-36.0) g/dL RDW Coeff of Petr (10.0-15.0) % Plt Count (130-400) x10^3/uL Immature Gran % (Auto) (0.00-0.43) % Neut % (Auto) (50.0-80.0) % Lymph % (Auto) (25.0-50.0) % [place] % (Auto) (2.0-11.0) % Eos % (Auto) (0.0-4.0) % Baso % (Auto) (0.2-1.2) % Neut # (Auto) (1.8-7.7) x10^3/uL Lymph # (Auto) (1.0-4.8) x10^3/uL [place] # (Auto) (0.0-0.8) x10^3/uL Eos # (Auto) (0.0-0.5) x10^3/uL Baso # (Auto) (0.0-0.2) x10^3/uL Immature Gran # (Auto) (0.00-0.07) x10^3/uL PT (9.9-12.5) SEC INR (2.0-3.5) APTT 27.7 (25.6-32.8) SEC D-Dimer, Quantitative (<=0.58) mg/LFEU Sodium (136-145) mmol/L Potassium (3.5-5.1) mmol/L Chloride (98-107) mmol/L Carbon Dioxide (21-32) mmol/L Anion Gap (5-15) mmol/L BUN (7-18) mg/dL Creatinine (0.55-1.02) mg/dL Est Cr Clr Drug Dosing Estimated GFR (MDRD) Glucose (70-99) mg/dL Lactic Acid 1.6 (0.4-2.0) mmol/L Calcium (8.5-10.1) mg/dL Corrected Calcium (8.5-10.1) mg/dL Phosphorus (2.6-4.7) mg/dL Magnesium (1.8-2.4) mg/dL Total Bilirubin (0.2-1.0) mg/dL AST (15-37) U/L ALT (14-59) U/L Alkaline Phosphatase (46-116) U/L Troponin I High Sens (<=51) ng/L C-Reactive Protein (<=0.9) mg/dL NT-Pro-B Natriuret Pep (<=125) pg/mL Total Protein (6.4-8.2) g/dL Albumin (3.4-5.0) g/dL Globulin Albumin/Globulin Ratio Meds: Medications Generic Name Dose Route Start Last Admin Trade Name Freq PRN Reason Stop Dose Admin Potassium Chloride/Sodium Chloride 1,000 mls @ 500 mls/hr 03/01/21 22:15 Normal Saline With 20 Meq Kcl IV ASDIRECTED FERNANDO Discontinued Medications Generic Name Dose Route Start Last Admin Trade Name Freq PRN Reason Stop Dose Admin Doxycycline Hyclate 100 mg 03/01/21 22:48 03/01/21 22:55 Doxycycline 100 Mg Cap PO 03/01/21 22:49 100 mg ONETIME ONE Administration Hydromorphone HCl 0.5 mg 03/01/21 21:55 03/01/21 22:36 Hydromorphone 0.5 Mg/0.5 Ml Syringe IV 03/01/21 21:56 0.5 mg ONETIME ONE Administration Iopamidol 100 ml 03/01/21 21:10 Iopamidol 755 Mg/Ml 100 Ml Bottle IV 03/01/21 21:11 ONETIME ONE Methylprednisolone Sodium Succinate 125 mg 03/01/21 22:47 03/01/21 22:55 Methylprednisolone Sodium Succinate 125 Mg/2 Ml Sdv IVPUSH 03/01/21 22:48 125 mg ONETIME ONE Administration Morphine Sulfate 4 mg 03/01/21 21:37 Morphine 4 Mg/Ml Syringe IVPUSH 03/01/21 21:38 ONETIME ONE - Radiology Interpretation Free Text/Narrative:: CTA chest obtained. No PE noted. No aneurysm noted. COPD Lipoma compressing R and L atria cardiomegaly, pulmonary congestion No infectious process, acute trauma noted Departure - Departure Time of Disposition: 11:55 Disposition: Home, Self-Care 01 Clinical Impression: Atypical chest pain - Discharge Information Referrals: Dianne Malave MD [Primary Care Provider] - Sepsis Event Note (ED) - Focused Exam Vital Signs: Vital Signs Temp Pulse Resp BP Pulse Ox 03/01/21 22:09 36.6 C 110 H 17 110/55 L 98 - Problem List Review Problem List Initiated/Reviewed/Updated: Yes - My Orders Last 24 Hours: My Active Orders 03/01/21 21:04 Chest PE [Ang Chest] [CT] Stat 03/01/21 21:05 Blood Culture x2 Reflex Set [OM.PC] Stat 03/01/21 21:18 CULTURE BLOOD [BC] Stat 03/01/21 21:24 CULTURE BLOOD [BC] Stat 03/01/21 22:15 NS + KCl 20mEq/L [Normal Saline with 20 mEq KCl] 1,000 ml IV ASDIRECTED - Assessment/Plan Last 24 Hours: My Active Orders 03/01/21 21:04 Chest PE [Ang Chest] [CT] Stat 03/01/21 21:05 Blood Culture x2 Reflex Set [OM.PC] Stat 03/01/21 21:18 CULTURE BLOOD [BC] Stat 03/01/21 21:24 CULTURE BLOOD [BC] Stat 03/01/21 22:15 NS + KCl 20mEq/L [Normal Saline with 20 mEq KCl] 1,000 ml IV ASDIRECTED Plan: Pt. will be discharged. Pt. was given 20meq of potassium IV in ER. Will have her increase her oral potassium. Pt. was started on a short course of prednisone and doxycycline. She is a bit wheeze. unclear if this is a new problem of a component of her chronic lung disease. 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 EKG today looked normal. Advised to follow-up with PCP tomorrow or the next day for recheck of her potassium, and again after 10 days for ER follow-up. Discussed findings with pt. daughter, Mariya.
[2021-03-01 21:56] LABS: CHLORIDE,CL 104 mmol/L (98-107); SODIUM,NA 142 mmol/L (136-145)
[2021-03-01 22:00] LABS: ANION GAP 16.7 mmol/L (5-15)
[2021-03-01] MEDS ORDERED: NS + KCl 20mEq/L 1,000 ML IV SCH (22:15)
[2021-03-01] MEDS: NS + KCl 20mEq/L 500 ML IV ONE (22:30)
[2021-03-01] MEDS: HYDROmorphone 0.5 MG/0.5 ML Syringe IV ONE (22:36)
[2021-03-01] MEDS: Doxycycline 100 MG Cap PO ONE (22:55)
[2021-03-01] MEDS: methylPREDNISolone Sodium Succinate 125 MG/2 ML SDV IVPUSH ONE (22:55)
--- NOTE | 2021-03-02 08:24 | CT ---
[id number] CT/CTA Chest EXAM: CT ANGIOGRAM CHEST INDICATION: CHEST PAIN, HYPOTENSION COMPARISON: None. DISCUSSION: There is a filling defect within a segmental and subsegmental branch of the posterior left upper lobe consistent with acute pulmonary embolism (series 10 image 78). No pulmonary infarct. No other pulmonary emboli are identified. Dependent atelectasis at the lung bases bilaterally. No confluent airspace consolidation. Incidental note is made of azygous lobe. Groundglass densities scattered throughout the lungs bilaterally. Findings are nonspecific though could be seen with mild pulmonary edema. The main pulmonary artery is enlarged measuring up to 3.1 cm consistent with pulmonary hypertension. No pleural or pericardial effusion. Coronary artery disease. 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 No mediastinal, hilar or axillary lymphadenopathy. The gallbladder is surgically absent. IMPRESSION: 1. Filling defect within a segmental and subsegmental branches of the posterior left upper lobe consistent with acute pulmonary embolism. No evidence of pulmonary infarct or acute right heart strain. Findings discussed with ordering provider at time of dictation. Keith Cash DO 03/02/21 0823 Thank you for allowing us to participate in the care of your patient.
== END 2021-03-01 23:35 | disposition home or self-care (01) ==
LOC: VM.ED 20:52
DX: R07.89 Other chest pain (principal); I25.10 Atherosclerotic heart disease of native coronary artery without angina pectoris; E78.00 Pure hypercholesterolemia, unspecified; K21.9 Gastro-esophageal reflux disease without esophagitis; Z88.8 Allergy status to other drugs, medicaments and biological substances; Z88.5 Allergy status to narcotic agent; Z88.2 Allergy status to sulfonamides; Z88.6 Allergy status to analgesic agent; Z88.1 Allergy status to other antibiotic agents; Z79.82 Long term (current) use of aspirin; Z79.899 Other long term (current) drug therapy
CPT/HCPCS: 36415; 71275; 80053; 83605; 83735; 83880; 84100; 84484; 85025; 85379; 85610; 85730; 86140; 87040; 93005; 93010; 96365; 96375; 99284; 99285-25; A9270-GY; J1170; J2930; J3480

== ENCOUNTER 2021-09-04 17:05 | Emergency (ER) | payer MEDICARE, MEDICAID ==
[2021-09-04] MEDS ORDERED: Sodium Chloride 0.9% 10 ML Syringe FLUSH PRN (17:09)
[2021-09-04 17:44] LABS: PTT,PARTIAL THROMBOPLSTIN TIME 29.3 SEC (20.5-30.9)
[2021-09-04 17:56] LABS: ANION GAP 12.5 mmol/L (5-15); CHLORIDE,CL 104 mmol/L (98-107); SODIUM,NA 140 mmol/L (136-145)
[2021-09-04 18:32] LABS: BARBITURATE SCREEN,URINE POSITIVE (NEGATIVE); BENZODIAZEPINES SCREEN,URINE NEGATIVE (NEGATIVE); BUPRENORPHINE SCREEN,URINE NEGATIVE (NEGATIVE); METHAMPHETAMINE SCREEN, URINE POSITIVE (NEGATIVE); THC SCREEN,URINE 50 NG/ML NEGATIVE (NEGATIVE)
[2021-09-04] MEDS ORDERED: cefTRIAXone 2 GM Vial IVPUSH ONE (18:38)
[2021-09-04 19:14] LABS: CORONAVIRUS COVID-19 NAA NEGATIVE (NEGATIVE); RESPIRATORY SYNCYTIAL VIR NAA NEGATIVE (NEGATIVE)
== END 2021-09-04 19:16 | disposition short-term general hospital (02) ==
LOC: VM.ED 17:05
DX: R53.1 Weakness (principal); N39.0 Urinary tract infection, site not specified; I25.10 Atherosclerotic heart disease of native coronary artery without angina pectoris; E78.00 Pure hypercholesterolemia, unspecified; K21.9 Gastro-esophageal reflux disease without esophagitis; Z88.5 Allergy status to narcotic agent; Z88.2 Allergy status to sulfonamides; Z88.1 Allergy status to other antibiotic agents; Z88.8 Allergy status to other drugs, medicaments and biological substances; Z79.82 Long term (current) use of aspirin; Z79.899 Other long term (current) drug therapy; Z20.822 Contact with and (suspected) exposure to COVID-19
CPT/HCPCS: 0241U; 36415; 51702; 70450; 71045; 80053; 80305-QW; 80307; 81001; 83605; 84443; 84484; 85025; 85610; 85730; 86140; 87040; 87086; 87088; 87186; 93005; 93010; 96374; 99284; 99285-25; J0696

== ENCOUNTER 2022-01-30 16:06 | Emergency (ER) | payer MEDICARE, MEDICAID ==
[2022-01-30] MEDS ORDERED: Sodium Chloride 0.9% 10 ML Syringe FLUSH PRN (16:23)
[2022-01-30 17:04] LABS: CHLORIDE,CL 108 mmol/L (98-107); SODIUM,NA 142 mmol/L (136-145)
[2022-01-30 17:06] LABS: ANION GAP 15.1 mmol/L (5-15); ESTIMATED GFR 59 mL/min (>=60)
== END 2022-01-30 18:38 | disposition home or self-care (01) ==
LOC: VM.ED 16:06
DX: I95.9 Hypotension, unspecified (principal); S09.90XA Unspecified injury of head, initial encounter; I25.10 Atherosclerotic heart disease of native coronary artery without angina pectoris; E78.00 Pure hypercholesterolemia, unspecified; K21.9 Gastro-esophageal reflux disease without esophagitis; Z88.5 Allergy status to narcotic agent; Z88.2 Allergy status to sulfonamides; Z88.8 Allergy status to other drugs, medicaments and biological substances; Z79.82 Long term (current) use of aspirin; Z79.899 Other long term (current) drug therapy; W10.9XXA Fall (on) (from) unspecified stairs and steps, initial encounter
CPT/HCPCS: 70450; 80053; 83880; 84484; 85025; 85610; 99284

== ENCOUNTER 2022-02-24 17:24 | Emergency (ER) | payer MEDICARE, MEDICAID ==
[2022-02-24] MEDS: Lidocaine 1% 5 ML VIAL INJECT ONE (17:48)
[2022-02-24] MEDS: Diphtheria,Pertussis(Acell),Tetanus Vaccine 0.5 ML Syringe IM ONE (17:57)
== END 2022-02-24 18:04 | disposition home or self-care (01) ==
LOC: VM.ED 17:24
DX: S61.211A Laceration without foreign body of left index finger without damage to nail, initial encounter (principal); I25.10 Atherosclerotic heart disease of native coronary artery without angina pectoris; E78.00 Pure hypercholesterolemia, unspecified; Z88.5 Allergy status to narcotic agent; Z88.2 Allergy status to sulfonamides; Z88.8 Allergy status to other drugs, medicaments and biological substances; Z79.82 Long term (current) use of aspirin; Z79.899 Other long term (current) drug therapy; Z23 Encounter for immunization; W26.0XXA Contact with knife, initial encounter
CPT/HCPCS: 12001; 90471; 90715; 99282-25

== ENCOUNTER 2022-06-08 08:19 | Emergency (ER) | payer MEDICARE ==
[2022-06-08 09:19] LABS: CHLORIDE,CL 103 mmol/L (98-107); SODIUM,NA 141 mmol/L (136-145)
[2022-06-08 09:23] LABS: ANION GAP 12.8 mmol/L (5-15); ESTIMATED GFR 48 mL/min (>=60)
[2022-06-08] MEDS ORDERED: HYDROmorphone 0.5 MG/0.5 ML Syringe IVPUSH ONE (09:44)
== END 2022-06-08 10:18 | disposition home or self-care (01) ==
LOC: MERGE 08:19 → VM.ED 08:19
DX: R56.9 Unspecified convulsions (principal); N39.0 Urinary tract infection, site not specified; I25.10 Atherosclerotic heart disease of native coronary artery without angina pectoris; E78.00 Pure hypercholesterolemia, unspecified; E11.9 Type 2 diabetes mellitus without complications; Z88.2 Allergy status to sulfonamides; Z88.5 Allergy status to narcotic agent; Z88.8 Allergy status to other drugs, medicaments and biological substances; Z79.899 Other long term (current) drug therapy; Z79.01 Long term (current) use of anticoagulants; Z79.84 Long term (current) use of oral hypoglycemic drugs; Z87.891 Personal history of nicotine dependence
CPT/HCPCS: 36415; 70450; 71046; 80053; 80185; 81001; 82550; 84484; 85025; 85610; 87086; 93005; 96374; 99283; J1170

== ENCOUNTER 2022-09-04 15:22 | Emergency (ER) | payer MEDICARE, MEDICAID ==
[2022-09-04 16:04] LABS: CHLORIDE,CL 102 mmol/L (98-107); SODIUM,NA 140 mmol/L (136-145)
[2022-09-04 16:06] LABS: ANION GAP 12.8 mmol/L (5-15); ESTIMATED GFR 40 mL/min (>=60)
== END 2022-09-04 16:28 | disposition home or self-care (01) ==
LOC: VM.ED 15:22
DX: S09.90XA Unspecified injury of head, initial encounter (principal); I25.10 Atherosclerotic heart disease of native coronary artery without angina pectoris; E78.00 Pure hypercholesterolemia, unspecified; E11.9 Type 2 diabetes mellitus without complications; Z88.6 Allergy status to analgesic agent; Z88.8 Allergy status to other drugs, medicaments and biological substances; Z88.2 Allergy status to sulfonamides; Z79.899 Other long term (current) drug therapy; Z79.82 Long term (current) use of aspirin; Z90.49 Acquired absence of other specified parts of digestive tract; W01.10XA Fall on same level from slipping, tripping and stumbling with subsequent striking against unspecified object, initial encounter
CPT/HCPCS: 36415; 70450; 80053; 85025; 85610; 99284

== ENCOUNTER 2022-10-25 09:47 | Inpatient (IN) | payer MEDICARE, MEDICAID ==
[2022-10-25] MEDS ORDERED: Lactated Ringers 1,000 ML IV ONE (10:16)
[2022-10-25 10:25] LABS: BASOPHILS PERCENT AUTO 0.3 % (0.2-1.2); EOSINOPHILS ABSOLUTE AUTO 0.1 x10^3/uL (0.0-0.5); EOSINOPHILS PERCENT AUTO 0.9 % (0.0-4.0); HEMATOCRIT 42.2 % (33.0-47.0); HEMOGLOBIN 14.1 g/dL (12.0-16.0); IMMATURE GRAN ABSOLUTE AUTO 0.01 x10^3/uL (0.00-0.07); LYMPHOCYTES ABSOLUTE AUTO 1.7 x10^3/uL (1.0-4.8); LYMPHOCYTES PERCENT AUTO 27.5 % (25.0-50.0); MEAN CORPUSCULAR HEMOGLOBIN 29.7 pg (26.0-32.0); MEAN CORPUSCULAR HGB CONC 33.4 g/dL (32.0-36.0); MONOCYTES ABSOLUTE AUTO 0.7 x10^3/uL (0.0-0.8); MONOCYTES PERCENT AUTO 11.5 % (2.0-11.0); NEUTROPHILS ABSOLUTE AUTO 3.8 x10^3/uL (1.8-7.7); NEUTROPHILS PERCENT AUTO 59.6 % (50.0-80.0); PLATELET COUNT,PLT 255 x10^3/uL (130-400); RED BLOOD CELL COUNT 4.74 x10^6/uL (4.00-5.50); WHITE BLOOD CELL COUNT,WBC 6.3 x10^3/uL (4.0-10.0)
[2022-10-25 10:50] LABS: A/G RATIO 0.91; ALANINE AMINOTRANSFERASE,ALT 47 U/L (14-59); ALBUMIN 3.2 g/dL (3.4-5.0); ALKALINE PHOSPHATASE 138 U/L (46-116); ASPARTATE AMNIOTRANSFERASE,AST 36 U/L (15-37); BILIRUBIN TOTAL 0.4 mg/dL (0.2-1.0); BLOOD UREA NITROGEN,BUN 12 mg/dL (7-18); CALCIUM 9.1 mg/dL (8.5-10.1); CARBON DIOXIDE,CO2 24 mmol/L (21-32); CHLORIDE,CL 106 mmol/L (98-107); CREATININE 1.6 mg/dL (0.55-1.02); GLUCOSE RANDOM 136 mg/dL (70-99); MAGNESIUM 2.3 mg/dL (1.8-2.4); PHOSPHORUS 4.5 mg/dL (2.6-4.7); POTASSIUM,K 3.8 mmol/L (3.5-5.1); PROTEIN TOTAL,TP 6.7 g/dL (6.4-8.2); SODIUM,NA 142 mmol/L (136-145)
[2022-10-25 10:51] LABS: ANION GAP 15.8 mmol/L (5-15); C-REACTIVE PROTEIN < 0.2 mg/dL (<=0.9); ESTIMATED GFR 37 mL/min (>=60)
[2022-10-25 11:03] LABS: ETHANOL BLOOD MEDICAL < 3 mg/dL (0-3)
[2022-10-25 11:13] LABS: BILIRUBIN,URINE NEGATIVE (NEGATIVE); COLOR,URINE YELLOW (YELLOW); GLUCOSE,URINE NEGATIVE (NEGATIVE); KETONES,URINE NEGATIVE (NEGATIVE); LEUKOCYTE ESTERASE,URINE MODERATE (NEGATIVE); NITRITE,URINE NEGATIVE (NEGATIVE); OCCULT BLOOD,URINE NEGATIVE (NEGATIVE); PROTEIN,URINE NEGATIVE (NEGATIVE); UROBILINOGEN,URINE 0.2 EU/dL (0.2)
[2022-10-25 11:20] LABS: AMPHETAMINES SCREEN, URINE POSITIVE (NEGATIVE); BARBITURATE SCREEN,URINE NEGATIVE (NEGATIVE); BENZODIAZEPINES SCREEN,URINE NEGATIVE (NEGATIVE); BUPRENORPHINE SCREEN,URINE NEGATIVE (NEGATIVE); COCAINE METABOLITES,URINE NEGATIVE (NEGATIVE); METHADONE SCREEN, URINE NEGATIVE (NEGATIVE); METHAMPHETAMINE SCREEN, URINE NEGATIVE (NEGATIVE); OXYCODONE SCREEN,URINE NEGATIVE (NEGATIVE); PCP SCREEN,URINE NEGATIVE (NEGATIVE); THC SCREEN,URINE 50 NG/ML POSITIVE (NEGATIVE)
[2022-10-25 11:21] LABS: INR 2.2 (2.0-3.5); PTT,PARTIAL THROMBOPLSTIN TIME 39.5 SEC (23.6-33.6)
[2022-10-25 11:26] LABS: APPEARANCE,URINE SLIGHTLY CLOUDY (CLEAR); BACTERIA,URINE RARE /HPF (NOT SEEN); MUCUS,URINE FEW /LPF (NOT SEEN); RBC,URINE 0-5 /HPF (NOT SEEN); SQUAMOUS EPITHELIAL CELLS,UR FEW /HPF (NOT SEEN)
[2022-10-25 11:27] LABS: HYALINE CASTS,URINE OCCASIONAL
[2022-10-25] MEDS ORDERED: cefTRIAXone 2 GM Vial IVPUSH ONE (11:27)
[2022-10-25] MEDS ORDERED: Iopamidol 755 Mg/ML 100 ML Bottle IVPUSH ONE (12:55)
[2022-10-25] MEDS ORDERED: Acetaminophen 325 MG Tab PO PRN (16:04)
[2022-10-25] MEDS ORDERED: Ondansetron 4 MG Tab.DIS PO PRN (16:04)
[2022-10-25] MEDS ORDERED: Albuterol HFA 18 Gm Inhaler INH PRN (16:10)
[2022-10-25] MEDS ORDERED: Diclofenac Sodium 1% Gel 100 GM Tube TOP PRN ×2 (16:42→18:09)
[2022-10-25] MEDS ORDERED: Nitroglycerin 0.4 MG Tab.SL SL PRN (16:42)
[2022-10-25] MEDS ORDERED: RIMEGEPANT SULFATE 75 MG PO PRN (16:42)
[2022-10-25] MEDS ORDERED: Atropine/Diphenoxylate 0.025-2.5 MG Tab PO PRN (16:42)
[2022-10-25] MEDS ORDERED: PIMECROLIMUS TOP PRN (16:42)
[2022-10-25] MEDS: Acetaminophen/HYDROcodone 325-5 MG Tab PO PRN (17:15)
[2022-10-25] MEDS: Potassium Chloride 20 MEQ Tab.ER PO SCH (17:18)
[2022-10-25] MEDS: Pantoprazole 40 MG Tab.CR PO SCH (17:18)
[2022-10-25] MEDS: Formoterol/Mometasone 200-5 MCG 13 GM Inhaler INH SCH (21:35)
[2022-10-25] MEDS: Nicotine 14 MG/24 Hr Patch TRDERM SCH (21:35)
[2022-10-25] MEDS: levETIRAcetam 500 MG Tab PO SCH (21:36)
[2022-10-25] MEDS: QUEtiapine 100 MG Tab PO SCH (21:36)
[2022-10-26] MEDS: Formoterol/Mometasone 200-5 MCG 13 GM Inhaler INH SCH ×2 (06:53→20:12)
[2022-10-26] MEDS: Tiotropium Bromide 4 GM Inhalation Spray (2.5mcg/1 dose; 10 doses) INH SCH (06:53)
[2022-10-26 07:07] LABS: BASOPHILS PERCENT AUTO 0.2 % (0.2-1.2); EOSINOPHILS ABSOLUTE AUTO 0.1 x10^3/uL (0.0-0.5); EOSINOPHILS PERCENT AUTO 1.9 % (0.0-4.0); HEMATOCRIT 40.4 % (33.0-47.0); HEMOGLOBIN 13.1 g/dL (12.0-16.0); IMMATURE GRAN ABSOLUTE AUTO 0.02 x10^3/uL (0.00-0.07); LYMPHOCYTES ABSOLUTE AUTO 1.7 x10^3/uL (1.0-4.8); LYMPHOCYTES PERCENT AUTO 28.6 % (25.0-50.0); MEAN CORPUSCULAR HEMOGLOBIN 29.4 pg (26.0-32.0); MEAN CORPUSCULAR HGB CONC 32.4 g/dL (32.0-36.0); MEAN CORPUSCULAR VOLUME 90.8 fL (78.0-93.0); MONOCYTES ABSOLUTE AUTO 0.7 x10^3/uL (0.0-0.8); MONOCYTES PERCENT AUTO 12.2 % (2.0-11.0); NEUTROPHILS ABSOLUTE AUTO 3.3 x10^3/uL (1.8-7.7); NEUTROPHILS PERCENT AUTO 56.8 % (50.0-80.0); PLATELET COUNT,PLT 217 x10^3/uL (130-400); RED BLOOD CELL COUNT 4.45 x10^6/uL (4.00-5.50); WHITE BLOOD CELL COUNT,WBC 5.9 x10^3/uL (4.0-10.0)
[2022-10-26 07:28] LABS: A/G RATIO 0.9; ALBUMIN 2.7 g/dL (3.4-5.0); ANION GAP 12.7 mmol/L (5-15); BILIRUBIN TOTAL 0.4 mg/dL (0.2-1.0); C-REACTIVE PROTEIN 0.2 mg/dL (<=0.9); CALCIUM 8.7 mg/dL (8.5-10.1); CREATININE 1.4 mg/dL (0.55-1.02); POTASSIUM,K 3.7 mmol/L (3.5-5.1); PROTEIN TOTAL,TP 5.7 g/dL (6.4-8.2)
[2022-10-26] MEDS: Sodium Chloride 0.9% 10 ML Syringe FLUSH PRN (09:44)
[2022-10-26] MEDS: Phytonadione 100 MCG Tab PO SCH (09:46)
[2022-10-26] MEDS: Pantoprazole 40 MG Tab.CR PO SCH ×2 (09:46→18:29)
[2022-10-26] MEDS: Potassium Chloride 20 MEQ Tab.ER PO SCH ×2 (09:46→18:29)
[2022-10-26] MEDS: cefTRIAXone 2 GM Vial IVPUSH SCH (09:46)
[2022-10-26] MEDS: Magnesium Oxide 400 MG Tab PO SCH (09:47)
[2022-10-26] MEDS: levETIRAcetam 500 MG Tab PO SCH ×2 (09:47→20:11)
[2022-10-26] MEDS: Furosemide 20 MG Tab PO SCH (09:48)
[2022-10-26] MEDS: Nicotine 14 MG/24 Hr Patch TRDERM SCH (09:50)
[2022-10-26] MEDS: REMOVE NICOTINE TRDERM SCH (09:51)
[2022-10-26] MEDS: CARIPRAZINE 3 MG PO SCH (11:57)
[2022-10-26] MEDS: MESALAMINE 0.375 GM PO SCH (11:58)
[2022-10-26] MEDS ORDERED: NICORETTE GUM CHEW PRN (13:02)
[2022-10-26] MEDS: Nicotine 21 MG/24 Hr Patch TRDERM SCH (13:50)
[2022-10-26] MEDS ORDERED: Warfarin 2.5 MG Tab PO SCH (20:00)
[2022-10-26] MEDS: QUEtiapine 100 MG Tab PO SCH (20:10)
[2022-10-26] MEDS: Rivaroxaban 10 MG Tab PO SCH (20:10)
[2022-10-26] MEDS: ClonazePAM 0.5 MG Tab PO PRN (20:16)
[2022-10-27] MEDS: Formoterol/Mometasone 200-5 MCG 13 GM Inhaler INH SCH ×2 (06:22→20:16)
[2022-10-27] MEDS: Tiotropium Bromide 4 GM Inhalation Spray (2.5mcg/1 dose; 10 doses) INH SCH (06:23)
[2022-10-27] MEDS: cefTRIAXone 2 GM Vial IVPUSH SCH (08:38)
[2022-10-27] MEDS: Potassium Chloride 20 MEQ Tab.ER PO SCH ×2 (08:38→17:51)
[2022-10-27] MEDS: Magnesium Oxide 400 MG Tab PO SCH (08:38)
[2022-10-27] MEDS: Pantoprazole 40 MG Tab.CR PO SCH ×2 (08:39→17:51)
[2022-10-27] MEDS: levETIRAcetam 500 MG Tab PO SCH ×2 (08:39→20:10)
[2022-10-27] MEDS: Furosemide 20 MG Tab PO SCH (08:41)
[2022-10-27] MEDS: Nicotine 21 MG/24 Hr Patch TRDERM SCH (08:41)
[2022-10-27] MEDS: Remove Patch NICOTINE PATCH TRDERM SCH (08:43)
[2022-10-27] MEDS: REMOVE NICOTINE TRDERM SCH (08:45)
[2022-10-27] MEDS: CARIPRAZINE 3 MG PO SCH (08:46)
[2022-10-27] MEDS: MESALAMINE 0.375 GM PO SCH (08:47)
[2022-10-27 08:55] LABS: HEMATOCRIT 41.8 % (33.0-47.0); HEMOGLOBIN 13.9 g/dL (12.0-16.0); MEAN CORPUSCULAR HEMOGLOBIN 29.8 pg (26.0-32.0); MEAN CORPUSCULAR HGB CONC 33.3 g/dL (32.0-36.0); MEAN CORPUSCULAR VOLUME 89.5 fL (78.0-93.0); RED BLOOD CELL COUNT 4.67 x10^6/uL (4.00-5.50); WHITE BLOOD CELL COUNT,WBC 5.2 x10^3/uL (4.0-10.0)
[2022-10-27] MEDS: Phytonadione 100 MCG Tab PO SCH (08:55)
[2022-10-27 09:16] LABS: A/G RATIO 0.84; ALBUMIN 2.7 g/dL (3.4-5.0); BILIRUBIN TOTAL 0.2 mg/dL (0.2-1.0); CALCIUM 8.9 mg/dL (8.5-10.1); CREATININE 1.2 mg/dL (0.55-1.02); EST CRCL DRUG DOSING (CG) 47.84 mL/min; POTASSIUM,K 4.3 mmol/L (3.5-5.1); PROTEIN TOTAL,TP 5.9 g/dL (6.4-8.2)
[2022-10-27 09:17] LABS: ANION GAP 14.3 mmol/L (5-15)
[2022-10-27] MEDS ORDERED: Sodium Chloride 0.9% 1,000 ML IV SCH (10:15)
[2022-10-27] MEDS: Acetaminophen/HYDROcodone 325-5 MG Tab PO PRN (20:07)
[2022-10-27] MEDS: QUEtiapine 100 MG Tab PO SCH (20:08)
[2022-10-27] MEDS: Rivaroxaban 10 MG Tab PO SCH (20:09)
[2022-10-27] MEDS: ClonazePAM 0.5 MG Tab PO PRN (20:10)
[2022-10-27] MEDS: Sodium Chloride 0.9% 10 ML Syringe FLUSH PRN (20:17)
[2022-10-28] MEDS: Formoterol/Mometasone 200-5 MCG 13 GM Inhaler INH SCH ×2 (08:39→20:01)
[2022-10-28] MEDS: Tiotropium Bromide 4 GM Inhalation Spray (2.5mcg/1 dose; 10 doses) INH SCH (08:40)
[2022-10-28] MEDS: MESALAMINE 0.375 GM PO SCH (08:40)
[2022-10-28] MEDS: Magnesium Oxide 400 MG Tab PO SCH (08:42)
[2022-10-28] MEDS: Furosemide 20 MG Tab PO SCH (08:42)
[2022-10-28] MEDS: Potassium Chloride 20 MEQ Tab.ER PO SCH ×2 (08:43→18:50)
[2022-10-28] MEDS: Pantoprazole 40 MG Tab.CR PO SCH ×2 (08:44→18:50)
[2022-10-28] MEDS: Phytonadione 100 MCG Tab PO SCH (08:44)
[2022-10-28] MEDS: Nicotine 21 MG/24 Hr Patch TRDERM SCH (08:49)
[2022-10-28] MEDS: CARIPRAZINE 3 MG PO SCH (08:51)
[2022-10-28] MEDS: cefTRIAXone 2 GM Vial IVPUSH SCH (08:51)
[2022-10-28] MEDS: Remove Patch NICOTINE PATCH TRDERM SCH (08:51)
[2022-10-28 08:54] LABS: BASOPHILS PERCENT AUTO 0.2 % (0.2-1.2); EOSINOPHILS ABSOLUTE AUTO 0.1 x10^3/uL (0.0-0.5); EOSINOPHILS PERCENT AUTO 1.2 % (0.0-4.0); HEMATOCRIT 43.4 % (33.0-47.0); HEMOGLOBIN 14.1 g/dL (12.0-16.0); LYMPHOCYTES ABSOLUTE AUTO 1.4 x10^3/uL (1.0-4.8); LYMPHOCYTES PERCENT AUTO 21.7 % (25.0-50.0); MEAN CORPUSCULAR HEMOGLOBIN 29.6 pg (26.0-32.0); MEAN CORPUSCULAR HGB CONC 32.5 g/dL (32.0-36.0); MONOCYTES ABSOLUTE AUTO 0.6 x10^3/uL (0.0-0.8); MONOCYTES PERCENT AUTO 8.5 % (2.0-11.0); NEUTROPHILS ABSOLUTE AUTO 4.5 x10^3/uL (1.8-7.7); NEUTROPHILS PERCENT AUTO 68.4 % (50.0-80.0); RED BLOOD CELL COUNT 4.77 x10^6/uL (4.00-5.50); WHITE BLOOD CELL COUNT,WBC 6.6 x10^3/uL (4.0-10.0)
[2022-10-28 09:18] LABS: PLATELET COUNT,PLT 185 x10^3/uL (130-400)
[2022-10-28 09:27] LABS: A/G RATIO 0.79; ALBUMIN 2.6 g/dL (3.4-5.0); BILIRUBIN TOTAL 0.4 mg/dL (0.2-1.0); CALCIUM 8.6 mg/dL (8.5-10.1); CREATININE 1.2 mg/dL (0.55-1.02); EST CRCL DRUG DOSING (CG) 47.84 mL/min; POTASSIUM,K 4.5 mmol/L (3.5-5.1); PROTEIN TOTAL,TP 5.9 g/dL (6.4-8.2)
[2022-10-28 09:28] LABS: ANION GAP 17.5 mmol/L (5-15)
[2022-10-28] MEDS: Acetaminophen/HYDROcodone 325-5 MG Tab PO PRN (11:10)
[2022-10-28] MEDS: REMOVE NICOTINE TRDERM SCH (18:51)
[2022-10-28] MEDS: QUEtiapine 100 MG Tab PO SCH (20:02)
[2022-10-28] MEDS: Rivaroxaban 10 MG Tab PO SCH (20:03)
[2022-10-28] MEDS: ClonazePAM 0.5 MG Tab PO PRN (20:03)
[2022-10-29] MEDS: Formoterol/Mometasone 200-5 MCG 13 GM Inhaler INH SCH (06:24)
[2022-10-29] MEDS: Tiotropium Bromide 4 GM Inhalation Spray (2.5mcg/1 dose; 10 doses) INH SCH (06:25)
[2022-10-29] MEDS: Nicotine 21 MG/24 Hr Patch TRDERM SCH (08:17)
[2022-10-29] MEDS: cefTRIAXone 2 GM Vial IVPUSH SCH (08:18)
[2022-10-29] MEDS: Potassium Chloride 20 MEQ Tab.ER PO SCH (08:19)
[2022-10-29] MEDS: Pantoprazole 40 MG Tab.CR PO SCH (08:19)
[2022-10-29] MEDS: Magnesium Oxide 400 MG Tab PO SCH (08:19)
[2022-10-29] MEDS: MESALAMINE 0.375 GM PO SCH (08:21)
[2022-10-29] MEDS: CARIPRAZINE 3 MG PO SCH (08:21)
[2022-10-29] MEDS ORDERED: QUEtiapine 100 MG Tab PO SCH (21:00)
== END 2022-10-29 12:30 | disposition home or self-care (01) | DRG 689 ==
LOC: VM.ED 09:47 → SUPCPDRO 09:47 → VM.MS 14:34
PROVIDERS: ADMIT Family Medicine; ATTEND Family Medicine
DX: N39.0 Urinary tract infection, site not specified (principal); G92.9 Unspecified toxic encephalopathy; E86.0 Dehydration; I95.1 Orthostatic hypotension; I50.9 Heart failure, unspecified; E78.5 Hyperlipidemia, unspecified; E66.9 Obesity, unspecified; K21.9 Gastro-esophageal reflux disease without esophagitis; T50.995A Adverse effect of other drugs, medicaments and biological substances, initial encounter; F31.9 Bipolar disorder, unspecified; F43.10 Post-traumatic stress disorder, unspecified; G89.4 Chronic pain syndrome; I25.10 Atherosclerotic heart disease of native coronary artery without angina pectoris; G40.909 Epilepsy, unspecified, not intractable, without status epilepticus; E78.00 Pure hypercholesterolemia, unspecified; G47.33 Obstructive sleep apnea (adult) (pediatric); E11.9 Type 2 diabetes mellitus without complications; Z90.49 Acquired absence of other specified parts of digestive tract; Z86.711 Personal history of pulmonary embolism; Z88.8 Allergy status to other drugs, medicaments and biological substances; Z88.5 Allergy status to narcotic agent; Z88.2 Allergy status to sulfonamides; Z79.51 Long term (current) use of inhaled steroids; Z87.820 Personal history of traumatic brain injury; Z79.899 Other long term (current) drug therapy; Z79.84 Long term (current) use of oral hypoglycemic drugs; Z98.890 Other specified postprocedural states; Z87.891 Personal history of nicotine dependence; Z68.29 Body mass index [BMI] 29.0-29.9, adult
CPT/HCPCS: 36415; 70450; 70496; 71045; 80053; 80305-QW; 80307; 81001; 82140; 83605; 83735; 84100; 84145; 84484; 85025; 85027; 85610; 85730; 86140; 87040; 87086; 93005; 93010; 96361; 96374; 96376; 97165-GO; 97530-GO; 99284; 99285-25; A9270-GY; J0696; J3490; J7120; Q9967

== ENCOUNTER 2023-05-21 18:28 | Emergency (ER) | payer MEDICARE, MEDICAID ==
[2023-05-21 19:02] LABS: BASOPHILS PERCENT AUTO 0.1 % (0.2-1.2); EOSINOPHILS PERCENT AUTO 0.3 % (0.0-4.0); HEMOGLOBIN 14.3 g/dL (12.0-16.0); IMMATURE GRAN ABSOLUTE AUTO 0.01 x10^3/uL (0.00-0.07); LYMPHOCYTES ABSOLUTE AUTO 1.4 x10^3/uL (1.0-4.8); LYMPHOCYTES PERCENT AUTO 21.4 % (25.0-50.0); MEAN CORPUSCULAR HEMOGLOBIN 29.4 pg (26.0-32.0); MEAN CORPUSCULAR HGB CONC 33.3 g/dL (32.0-36.0); MEAN CORPUSCULAR VOLUME 88.3 fL (78.0-93.0); MONOCYTES ABSOLUTE AUTO 0.7 x10^3/uL (0.0-0.8); MONOCYTES PERCENT AUTO 9.9 % (2.0-11.0); NEUTROPHILS ABSOLUTE AUTO 4.6 x10^3/uL (1.8-7.7); NEUTROPHILS PERCENT AUTO 68.2 % (50.0-80.0); PLATELET COUNT,PLT 221 x10^3/uL (130-400); RED BLOOD CELL COUNT 4.87 x10^6/uL (4.00-5.50); WHITE BLOOD CELL COUNT,WBC 6.7 x10^3/uL (4.0-10.0)
[2023-05-21] MEDS ORDERED: Naloxone 0.4 MG/ML SDV IVPUSH PRN (19:04)
[2023-05-21] MEDS ORDERED: fentaNYL 50 MCG/ML SDV IVPUSH ONE (19:04)
[2023-05-21 19:26] LABS: A/G RATIO 1.06; ALANINE AMINOTRANSFERASE,ALT 166 U/L (14-59); ALBUMIN 3.4 g/dL (3.4-5.0); ALKALINE PHOSPHATASE 134 U/L (46-116); ASPARTATE AMNIOTRANSFERASE,AST 162 U/L (15-37); BILIRUBIN TOTAL 0.4 mg/dL (0.2-1.0); BLOOD UREA NITROGEN,BUN 6 mg/dL (7-18); CALCIUM 8.7 mg/dL (8.5-10.1); CARBON DIOXIDE,CO2 28 mmol/L (21-32); CHLORIDE,CL 107 mmol/L (98-107); CREATININE 1.3 mg/dL (0.55-1.02); EST CRCL DRUG DOSING (CG) 44.16 mL/min; GLUCOSE RANDOM 97 mg/dL (70-99); POTASSIUM,K 3.6 mmol/L (3.5-5.1); PRO B-TYPE NATRIUR PEPT,BNPPRO 105 pg/mL (<=125); PROTEIN TOTAL,TP 6.6 g/dL (6.4-8.2); SODIUM,NA 144 mmol/L (136-145)
[2023-05-21 19:27] LABS: ANION GAP 12.6 mmol/L (5-15); C-REACTIVE PROTEIN < 0.50 mg/dL (<=0.50); ESTIMATED GFR 48 mL/min (>=60)
== END 2023-05-21 20:28 | disposition home or self-care (01) ==
LOC: VM.ED 18:28
DX: R07.89 Other chest pain (principal); I50.9 Heart failure, unspecified; I25.2 Old myocardial infarction; I25.10 Atherosclerotic heart disease of native coronary artery without angina pectoris; E78.00 Pure hypercholesterolemia, unspecified; K21.9 Gastro-esophageal reflux disease without esophagitis; E66.9 Obesity, unspecified; Z90.710 Acquired absence of both cervix and uterus; Z90.49 Acquired absence of other specified parts of digestive tract; Z79.899 Other long term (current) drug therapy; Z87.891 Personal history of nicotine dependence; Z79.01 Long term (current) use of anticoagulants; Z88.7 Allergy status to serum and vaccine; Z88.5 Allergy status to narcotic agent; Z88.1 Allergy status to other antibiotic agents; Z88.2 Allergy status to sulfonamides; Z88.8 Allergy status to other drugs, medicaments and biological substances; Z68.27 Body mass index [BMI] 27.0-27.9, adult
CPT/HCPCS: 36415; 71046; 80053; 83880; 84484; 85025; 86140; 96374; 99285; J3010; 99284

== ENCOUNTER 2023-06-08 18:16 | Emergency (ER) | payer MEDICARE, MEDICAID ==
[2023-06-08] MEDS: Aspirin 81 MG Tab.Chew PO ONE (18:41)
[2023-06-08 18:56] LABS: BASOPHILS PERCENT AUTO 0.1 % (0.2-1.2); EOSINOPHILS PERCENT AUTO 0.2 % (0.0-4.0); HEMATOCRIT 43.6 % (33.0-47.0); HEMOGLOBIN 14.6 g/dL (12.0-16.0); IMMATURE GRAN ABSOLUTE AUTO 0.01 x10^3/uL (0.00-0.07); LYMPHOCYTES ABSOLUTE AUTO 1.2 x10^3/uL (1.0-4.8); MEAN CORPUSCULAR HEMOGLOBIN 30.4 pg (26.0-32.0); MEAN CORPUSCULAR HGB CONC 33.5 g/dL (32.0-36.0); MEAN CORPUSCULAR VOLUME 90.6 fL (78.0-93.0); MONOCYTES ABSOLUTE AUTO 0.6 x10^3/uL (0.0-0.8); MONOCYTES PERCENT AUTO 6.5 % (2.0-11.0); NEUTROPHILS ABSOLUTE AUTO 7.5 x10^3/uL (1.8-7.7); NEUTROPHILS PERCENT AUTO 80.1 % (50.0-80.0); PLATELET COUNT,PLT 265 x10^3/uL (130-400); RED BLOOD CELL COUNT 4.81 x10^6/uL (4.00-5.50); WHITE BLOOD CELL COUNT,WBC 9.4 x10^3/uL (4.0-10.0)
[2023-06-08 19:21] LABS: A/G RATIO 0.89; ALANINE AMINOTRANSFERASE,ALT 51 U/L (14-59); ALBUMIN 3.3 g/dL (3.4-5.0); ALKALINE PHOSPHATASE 165 U/L (46-116); ASPARTATE AMNIOTRANSFERASE,AST 53 U/L (15-37); BILIRUBIN TOTAL 0.5 mg/dL (0.2-1.0); BLOOD UREA NITROGEN,BUN 11 mg/dL (7-18); CARBON DIOXIDE,CO2 25 mmol/L (21-32); CHLORIDE,CL 107 mmol/L (98-107); CREATININE 1.4 mg/dL (0.55-1.02); GLUCOSE RANDOM 125 mg/dL (70-99); POTASSIUM,K 4.1 mmol/L (3.5-5.1); SODIUM,NA 143 mmol/L (136-145)
[2023-06-08] MEDS: Ketorolac 15 MG/ML SDV IVPUSH ONE (19:25)
[2023-06-08 19:27] LABS: ANION GAP 15.1 mmol/L (5-15); ESTIMATED GFR 44 mL/min (>=60)
[2023-06-08] MEDS: fentaNYL 50 MCG/ML SDV IVPUSH ONE (19:50)
== END 2023-06-08 20:20 | disposition home or self-care (01) ==
LOC: VM.ED 18:16
DX: R07.89 Other chest pain (principal); I25.10 Atherosclerotic heart disease of native coronary artery without angina pectoris; I50.9 Heart failure, unspecified; I25.2 Old myocardial infarction; K21.9 Gastro-esophageal reflux disease without esophagitis; E66.9 Obesity, unspecified; Z79.01 Long term (current) use of anticoagulants; Z79.899 Other long term (current) drug therapy; Z88.2 Allergy status to sulfonamides; Z88.3 Allergy status to other anti-infective agents; Z88.5 Allergy status to narcotic agent; Z88.8 Allergy status to other drugs, medicaments and biological substances; Z68.28 Body mass index [BMI] 28.0-28.9, adult
CPT/HCPCS: 71045; 80053; 84484; 85025; 93005; 96374; 96375; 99285; A9270; J1885; J3010